=== PATIENT | male | born 1980 | race Caucasian/White ===

== ENCOUNTER 2017-09-25 00:55 | Emergency (ER) | payer SELFPAY ==
[2017-09-25 01:30] VITALS: BP 137/76; PULSE 76; TEMP 98.2; BMI 24.5
--- NOTE | 2017-09-25 02:50 | PDOC ---
History of Present Illness - General History Source: Patient Exam Limitations: No Limitations <Anthony Bhatti - Last Filed: 09/25/17 02:44> - History of Present Illness Initial Comments: 09/25/17 02:52 The patient is a 37 year old male, with no significant past medical history, who presents to the emergency department with, right inguinal hernia. The patient reports that his hernia protrudes out with motions such as laughing or coughing. He works 7 days a week at a [employer] where he does heavy lifting which he claims causes his hernia to protrude out. When his hernia is protruding he reports a pain he describes as tight. The patient had surgery for a hernia repair 2-[address] Dennison. He denies any testicular pain, lesions, or drainage. He denies any recent fevers , chills, headache or dizziness. He denies any recent nausea, vomit, diarrhea or constipation. He denies any recent chest pain or shortness of breath. He denies any recent dysuria, frequency, urgency or hematuria. Allergies: NKA Past surgical history: Left groin hernia repair. Social History: Smoker. Denies recreational drug use. <Kaylan Castro - Last Filed: 09/25/17 02:52> - General Chief Complaint: Pain Stated Complaint: PAIN RIGHT SIDE ABDOMEN Time Seen by Provider: 09/25/17 02:15 Past History - Past Medical History COPD: No Other medical history: denies - Immunization History Immunization Up to Date: Yes - Suicide/Smoking/Psychosocial Hx Smoking History: Current some day smoker Information on smoking cessation initiated: Yes Hx Alcohol Use: Yes (social) Drug/Substance Use Hx: Yes Substance Use Type: None <Anthony Bhatti - Last Filed: 09/25/17 02:44> <Kaylan Castro - Last Filed: 09/25/17 02:52> - Past Medical History Allergies/Adverse Reactions: Allergies Allergy/AdvReac Type Severity Reaction Status Date / Time No Known Allergies Allergy Verified 09/25/17 01:18 Home Medications: Ambulatory Orders Nicotine [Nicotine Patch 21 mg/24 hr] 1 each TD DAILY #14 patch.td24 09/25/17 Review of Systems - Review of Systems Able to Perform ROS?: Yes Comments:: 09/25/17 02:52 GENERAL/CONSTITUTIONAL: No fever or chills. No weakness. HEAD, EYES, EARS, NOSE AND THROAT: No change in vision. No ear pain or discharge. No sore throat. CARDIOVASCULAR: No chest pain or shortness of breath. RESPIRATORY: No cough, wheezing, or hemoptysis. GASTROINTESTINAL: No nausea, vomiting, diarrhea or constipation. +GENITOURINARY: Right inguinal hernia. No dysuria, frequency, or change in urination. MUSCULOSKELETAL: No joint or muscle swelling or pain. No neck or back pain. SKIN: No rash NEUROLOGIC: No headache, vertigo, loss of consciousness, or change in strength/ sensation. ENDOCRINE: No increased thirst. No abnormal weight change. HEMATOLOGIC/LYMPHATIC: No anemia, easy bleeding, or history of blood clots. ALLERGIC/IMMUNOLOGIC: No hives or skin allergy. All Other Systems: Reviewed and Negative <Kaylan Castro - Last Filed: 09/25/17 02:52> *Physical Exam - Vital Signs Last Vital Signs Temp Pulse Resp BP Pulse Ox 98.2 F 76 20 137/76 99 09/25/17 01:15 09/25/17 01:15 09/25/17 01:15 09/25/17 01:15 09/25/17 01:15 <Anthony Bhatti - Last Filed: 09/25/17 02:44> - Vital Signs Last Vital Signs Temp Pulse Resp BP Pulse Ox 98.2 F 76 20 137/76 99 09/25/17 01:15 09/25/17 01:15 09/25/17 01:15 09/25/17 01:15 09/25/17 01:15 - Physical Exam Comments: 09/25/17 02:52 GENERAL: Awake, alert, and fully oriented, in no acute distress HEAD: No signs of trauma EYES: PERRLA, EOMI, sclera anicteric, conjunctiva clear ENT: Auricles normal inspection, hearing grossly normal, nares patent, oropharynx clear without exudates. Moist mucosa NECK: Normal ROM, supple, no lymphadenopathy, JVD, or masses LUNGS: Breath sounds equal, clear to auscultation bilaterally. No wheezes, and no crackles HEART: Regular rate and rhythm, normal S1 and S2, no murmurs, rubs or gallops ABDOMEN: Soft, nontender, normoactive bowel sounds. No guarding, no rebound. No masses +: 3x3 reducible right inguinal hernia. Uncircumsized penis. No penile rashes , lesions, or drainage noted. EXTREMITIES: Normal range of motion, no edema. No clubbing or cyanosis. No cords, erythema, or tenderness NEUROLOGICAL: Cranial nerves II through XII grossly intact. Normal speech, normal gait SKIN: Warm, Dry, normal turgor, no rashes or lesions noted. <Kaylan Castro - Last Filed: 09/25/17 02:52> Medical Decision Making - Medical Decision Making 09/25/17 02:44 A portion of this note was written by my scribe, under my supervision. Vital Signs Temp Pulse Resp BP Pulse Ox 98.2 F 76 20 137/76 99 09/25/17 01:15 09/25/17 01:15 09/25/17 01:15 09/25/17 01:15 09/25/17 01:15 37 year old male c/ hx of left inguinal hernia repair 3 years ago p/w right inguinal hernia. The patient reports of several months of having a right sided inguinal hernia that is reducible. The patient however has been unable to follow up with a surgeon for outpatient follow up as he works 7 days as week. He lifts a lot of heavy objects at work. Today, noted that his right inguinal hernia wasn't reducing, but he is tolerating PO, and moving bowels normally. Denies fevers, chills. Came in for an evaluation. The patient has no testistular tenderness or issues. Noted to have a right inguinal hernia that I successfully reduced. I advised the patient that he will benefit largely from an outpatient surgical consult. He states that he will follow up as an outpatient. He also requests a nicotine patch for smoking cessation. Will write a prescription. Return precautions given including strangulation, uncontrollable pain, fever, persistent vomiting. <Anthony Bhatti - Last Filed: 09/25/17 02:44> *DC/Admit/Observation/Transfer <Anthony Bhatti - Last Filed: 09/25/17 02:44> - Attestations Scribe Attestion: 09/25/17 02:52 Documentation prepared by Kaylan Castro, acting as medical engineer for Anthony Bhatti MD. <GoKaylan mayer - Last Filed: 09/25/17 02:52> Diagnosis at time of Disposition: Inguinal hernia Qualifiers: Obstruction and gangrene presence: without obstruction or gangrene Laterality: unilateral Recurrence: recurrent Qualified Code(s): K40.91 - Unilateral inguinal hernia, without obstruction or gangrene, recurrent - Discharge Dispostion Disposition: HOME Condition at time of disposition: Stable - Prescriptions Prescriptions: Nicotine [Nicotine Patch 21 mg/24 hr] 1 each TD DAILY #14 patch.td24 - Referrals Referrals: Bandar Varghese MD [Staff Physician] - - Patient Instructions Printed Discharge Instructions: DI for Groin Hernia Additional Instructions: Please make an appointment with the general surgeon. Call to schedule an appointment. Please use the nicotine patch as prescribed. It is very important that you follow up. If you notice uncontrollable pain, fevers, persistent vomiting, please return to the ER. - Post Discharge Activity Forms/Work/School Notes: Back to Work
== END 2017-09-25 03:56 | disposition home or self-care (01) ==
LOC: JER 00:55
DX: K40.91 Unilateral inguinal hernia, without obstruction or gangrene, recurrent (principal)
CPT/HCPCS: 99281-25